=== PATIENT | female | born 1980 | race Two or more races ===

== ENCOUNTER 2018-08-02 18:29 | Emergency (ER) | payer OTHER ==
[2018-08-02 18:36] VITALS: BP 132/80; PULSE 83; TEMP 98.3; BMI 27.2
--- NOTE | 2018-08-02 19:19 | PDOC ---
History of Present Illness - General Chief Complaint: Abscess Boil Stated Complaint: CYST RIGHT LEG Time Seen by Provider: 08/02/18 18:58 - History of Present Illness Initial Comments: 08/02/18 19:16 38-year-old female without comorbidities presents for evaluation of a painful area on her right mons pubis 3 days. She does have a history of prior abscesses in that area going on about 3 months one was I&D in the past. She self medicated with ampicillin that she got from the [place] she has no systemic symptoms Past History - Past Medical History Allergies/Adverse Reactions: Allergies Allergy/AdvReac Type Severity Reaction Status Date / Time No Known Allergies Allergy Verified 08/02/18 18:37 Home Medications: Ambulatory Orders Cephalexin [Keflex] 500 mg PO QID #40 capsule 08/02/18 Sulfamethoxazole/Trimethoprim [Bactrim Ds -] 1 tab PO BID #14 tablet 08/02/18 COPD: No - Suicide/Smoking/Psychosocial Hx Smoking History: Never smoked Hx Alcohol Use: Yes (OCCASIONALLY) Drug/Substance Use Hx: No Review of Systems - Review of Systems Constitutional: No: Fever Integumentary: Yes: See HPI, Lumps *Physical Exam - Vital Signs Last Vital Signs Temp Pulse Resp BP Pulse Ox 98.3 F 83 16 132/80 100 08/02/18 18:34 08/02/18 18:34 08/02/18 18:34 08/02/18 18:34 08/02/18 18:34 - Physical Exam Comments: 08/02/18 19:16 There is erythema warmth and induration without fluctuance at the right mons pubis. About 3 cm circumferentially. Otherwise normal skin color and temperature. Medical Decision Making - Medical Decision Making 08/02/18 19:17 This is an abscess or folliculitis of the right mons pubis which cannot be I&D at this point I recommended warm compresses I've placed on a course of Keflex and Bactrim and I will have her follow-up with [facility]. Examination was done with female nurse in the room. *DC/Admit/Observation/Transfer Diagnosis at time of Disposition: Abscess - Discharge Dispostion Disposition: HOME Condition at time of disposition: Stable Decision to Admit order: No - Referrals Referrals: Marychuy Lopez MD [Staff Physician] - - Patient Instructions Printed Discharge Instructions: DI for Skin Abscess Additional Instructions: warm compresse as discussed 5-6 times a day. Please take the antibiotics prescribed you as directed do not take the antibiotics usually shown me today. Return to the emergency room for worsening symptoms and follow-up with [facility] in one to 2 days for further evaluation and treatment options - Post Discharge Activity
== END 2018-08-02 19:24 | disposition home or self-care (01) ==
LOC: JERFT 18:29
DX: L02.215 Cutaneous abscess of perineum (principal)
CPT/HCPCS: 99281-25

== ENCOUNTER 2018-12-21 19:18 | Emergency (ER) | payer SELFPAY ==
--- NOTE | 2018-12-21 19:29 | PDOC ---
Rapid Medical Evaluation Chief Complaint: Abscess Boil Time Seen by Provider: 12/21/18 19:28 Medical Evaluation: Allergies Allergy/AdvReac Type Severity Reaction Status Date / Time No Known Allergies Allergy Verified 08/02/18 18:37 12/21/18 19:29 HPI: R ingunal/labial abscess? PE:Deferred ORDERS: Nothing Discharge Disposition - Diagnosis Abscess - Referrals - Patient Instructions - Post Discharge Activity
[2018-12-21 19:32] VITALS: BP 132/88; PULSE 90; TEMP 98.5; BMI 26.2
[2018-12-21] MEDS ORDERED: SULFAMETHOXAZOLE/TRIMETHOPRIM 800MG/160MG D.S. TABLET PO ONE (21:23)
[2018-12-21] MEDS ORDERED: SULFAMETHOXAZOLE/TRIMETHOPRIM 800MG/160MG D.S. TABLET ONE (21:28)
--- NOTE | 2018-12-21 21:28 | PDOC ---
History of Present Illness - General Chief Complaint: Abscess Boil Stated Complaint: ABSCESSS Time Seen by Provider: 12/21/18 19:28 - History of Present Illness Initial Comments: 12/21/18 21:23 CHIEF COMPLAINT: abscess HISTORY OF PRESENT ILLNESS: 38 yo F with no significant PMH presents to [facility] with abscess x 4 days. Patient reports that her abscess opened at home and has been draining but she thought she needed antibiotics. Denies any fever , chills, nausea, vomiting, or any other signs of systemic infeciton. No recent travel or sick contacts. PAST MEDICAL HISTORY: Denies past medical history FAMILY HISTORY: Denies SOCIAL HISTORY: Denies tobacco, alcohol, illicit drug use. SURGICAL HISTORY: Denies ALLERGIES: No known drug allergies REVIEW OF SYSTEMS General/Constitutional: Denies fever or chills. Denies weakness, weight change. HEENT: Denies change in vision. Denies ear pain or discharge. Denies sore throat. Cardiovascular: Denies chest pain or shortness of breath. Respiratory: Denies cough, wheezing, or hemoptysis. Gastrointestinal: Denies nausea, vomiting, diarrhea or constipation. Denies rectal bleeding. Genitourinary: Denies dysuria, frequency, or change in urination. Musculoskeletal: Denies joint or muscle swelling or pain. Denies neck or back pain. Skin: "These bumps came up 4 days ago, now they are draining" Neurologic: Denies headache, vertigo, loss of consciousness, or loss of sensation. PHYSICAL EXAM General Appearance: Well-appearing, appropriately dressed. No apparent distress , no intoxication. HEENT: EOMI, PERRLA, normal ENT inspection, normal voice, TMs normal, pharynx normal. No conjunctival pallor. No photophobia, scleral icterus. Neck: Supple. Trachea midline. No tenderness, rigidity, carotid bruit, stridor , lymphadenopathy, or thyromegaly. Respiratory/Chest: Lungs CTAB. No shortness of breath, chest tenderness, respiratory distress, accessory muscle use. No crackles, rales, rhonchi, stridor , wheezing, dullness Cardiovascular: RRR. S1, S2. No JVD, murmur, bradycardia, tachycardia. Vascular Pulses: Dorsalis-Pedis (R): 2+, Dorsalis-Pedis (L): 2+ Gastrointestinal/Abdominal: Normal bowel sounds. Abdomen soft, non-distended. No tenderness or rebound tenderness. No organomegaly, pulsatile mass, guarding , hernia, hepatomegaly, splenomegaly. Lymphatic: No adenopathy, tenderness. Musculoskeletal/Extremities: Normal inspection. FROM of all extremities, normal capillary refill. Pelvis Stable. No CVA tenderness. No tenderness to extremities, pedal edema, swelling, erythema or deformity. Integumentary: Abscess with two sites of purulent drainage to R suprapubic region. Appropriate color, dry, warm. No cyanosis, erythema, jaundice or rash Neurologic: training mgr II-XII intact. Fully oriented, alert. Appropriate mood/affect. Motor strength 5/5. No appreciable EOM palsy, facial droop or sensory deficit. Past History - Past Medical History Allergies/Adverse Reactions: Allergies Allergy/AdvReac Type Severity Reaction Status Date / Time No Known Allergies Allergy Verified 08/02/18 18:37 Home Medications: Ambulatory Orders Cephalexin [Keflex] 500 mg PO QID #40 capsule 08/02/18 Sulfamethoxazole/Trimethoprim [Bactrim DS -] 1 tab PO BID #14 tablet 12/21/18 COPD: No - Suicide/Smoking/Psychosocial Hx Smoking History: Never smoked Hx Alcohol Use: Yes (OCCASIONALLY) Drug/Substance Use Hx: No *Physical Exam - Vital Signs Last Vital Signs Temp Pulse Resp BP Pulse Ox 98.5 F 90 18 132/88 100 12/21/18 19:29 12/21/18 19:29 12/21/18 19:29 12/21/18 19:29 12/21/18 19:29 Medical Decision Making - Medical Decision Making 12/21/18 21:26 abscess draining wound cx sent patient ops for abx trial vs I&D today. *DC/Admit/Observation/Transfer Diagnosis at time of Disposition: Abscess - Discharge Dispostion Disposition: HOME Condition at time of disposition: Stable Decision to Admit order: No - Prescriptions Prescriptions: Sulfamethoxazole/Trimethoprim [Bactrim DS -] 1 tab PO BID #14 tablet - Referrals - Patient Instructions Printed Discharge Instructions: DI for Skin Abscess Additional Instructions: As discussed, please take antibiotics as described and monitor your abscess. If your symptoms do not improve in 2 days, the area of the abscess gets larger, or you develop fever, chills, nausea, vomiting, or diarrhea, please return to the ER immediately. - Post Discharge Activity
== END 2018-12-21 21:51 | disposition home or self-care (01) ==
LOC: JERFT 19:18
DX: L02.211 Cutaneous abscess of abdominal wall (principal)
CPT/HCPCS: 87070; 87077; 87186; 87205; 99281-25